=== PATIENT | female | born 1950 | race Caucasian/White ===

== ENCOUNTER 2019-09-26 13:53 | Emergency (ER) | payer MEDICARE, OTHER ==
[2019-09-26 14:11] VITALS: BP 146/94; PULSE 97; TEMP 98.2; BMI 29.7
[2019-09-26] MEDS ORDERED: KETOROLAC TROMETHAMINE 15 MG/ML VIAL IM ONE (14:13)
[2019-09-26] MEDS ORDERED: KETOROLAC TROMETHAMINE 15 MG/ML VIAL ONE (14:14)
--- NOTE | 2019-09-26 14:32 | PDOC ---
Documentation entered by Lore Bhatt SCRIBE, acting as scribe for Mu Manzanares MD. Mu Manzanares MD: This documentation has been prepared by the Susanna leal Maria, SCRIBE, under my direction and personally reviewed by me in its entirety. I confirm that the documentation accurately reflects all work, treatment, procedures, and medical decision making performed by me. History of Present Illness - General Chief Complaint: Headache Stated Complaint: HEADACHE Time Seen by Provider: 09/26/19 14:01 History Source: Patient Exam Limitations: No Limitations - History of Present Illness Initial Comments: 09/26/19 14:19 The patient is a 69 year old female with a significant past medical history of hypertension and GERD who presents to the emergency room with 9 days of a worsening headache. As per patient, she reports being prescribed Azithromycin for a sinus infection, she reports today is her second day on the medication. She also reports Advil for her symptoms with no alleviation of pain prompting her to the ER. Patient denies recent fevers, chills. She denies recent nausea or vomiting. She denies recent chest pain, weakness or shortness of breath. Past History - Past Medical History Allergies/Adverse Reactions: Allergies Allergy/AdvReac Type Severity Reaction Status Date / Time Penicillins Allergy Verified 09/26/19 14:01 Home Medications: Ambulatory Orders Azithromycin 250 mg PO DAILY 09/26/19 Esomeprazole Magnesium [Nexium 24Hr] 20 mg PO DAILY 09/26/19 Olmesartan Medoxomil [Benicar (Nf)] 20 mg PO DAILY 09/26/19 Review of Systems - Review of Systems Able to Perform ROS?: Yes Constitutional: No: Symptoms Reported, See HPI, Chills, Diaphoresis, Fever, Loss of Appetite, Malaise, Night Sweats, Weakness, Weight Stable, Unintentional Wgt. Loss, Unexplained wgt Loss, Other HEENTM: No: Symptoms Reported, See HPI, Eye Pain, Blurred Vision, Tearing, Recent change in vision, Double Vision, Cataracts, Ear Pain, Ocular Prothesis, Ear Discharge, Nose Pain, Nose Congestion, Tinnitus, Nose Bleeding, Hearing Loss, Throat Pain, Throat Swelling, Mouth Pain, Dental Problems, Difficulty Sw allowing, Mouth Swelling, Other Respiratory: No: Symptoms reported, See HPI, Cough, Orthopnea, Shortness of Breath, SOB with Exertion, SOB at Rest, Stridor, Wheezing, Productive cough, Hemoptysis, Other Cardiac (ROS): No: Symptoms Reported, See HPI, Chest Pain, Edema, Irregular Heart Rate, Lightheadedness, Palpitations, Syncope, Chest Tightness, Other ABD/GI: No: Symptoms Reported, See HPI, Abdominal Distended, Abd. Pain w/ defecation, Blood Streaked Bowels, Constipated, Diarrhea, Difficulty Swallowing, Nausea, Poor Appetite, Poor Fluid Intake, Rectal Bleeding, Vomiting, Indigestion, Abdominal cramping, Tarry Stools, Other : No: Symptoms Reported, See HPI, Burning, Dysuria, Discharge, Frequency, Flank Pain, Hematuria, Incontinence, Pain, Urgency, Testicular Mass, Testicular Swelling, Lesions, Testicular Pain, Other Musculoskeletal: No: Symptoms Reported, See HPI, Back Pain, Gout, Joint Pain, Joint Swelling, Muscle Pain, Muscle Weakness, Neck Pain, Joint Stiffness, Other Integumentary: No: Symptoms Reported, See HPI, Bruising, Change in Color, Change in Hair/Nails, Dryness, Erythema, Flushing, Lesions, Lumps, Pallor, Pruritus, Rash, Sweating, Other Neurological: Yes: Headache Psychiatric: No: Anxiety, Depression, Frequent Crying, Stressors, Sleep Pattern Change, Emotional Problems, Mood Swings, Change in Appetite, Other Endocrine: No: Symptoms Reported, See HPI, Excessive Sweating, Flushing, Intolerance to Cold, Intolerance to Heat, Increased Hunger, Increased Thirst, Increased Urine, Unexplained Weight Gain, Unexplained Weight Loss, Change in Weight, Other Hematologic/Lymphatic: No: Symptoms Reported, See HPI, Anemia, Blood Clots, Easy Bleeding, Easy Bruising, Bleeding Diathesis, Lymph Node Abnormalities, Swollen Glands, Other *Physical Exam - Vital Signs 09/26/19 14:20 GENERAL: Well developed, well nourished. Awake and alert. No acute distress. HEENT:+pressure in the frontal and maximal sinuses. Normocephalic, atraumatic. PERRLA, EOMI. No conjunctival pallor. Sclera are non- icteric. Moist mucous membranes. Oropharynx is clear. NECK: Supple. Full ROM. No JVD. Carotid pulses 2+ and symmetric, without bruits. No thyromegaly. No lymphadenopathy. CARDIOVASCULAR: Regular rate and rhythm. No murmurs, rubs, or gallops. Distal pulses are 2+ and symmetric. PULMONARY: No evidence of respiratory distress. Lungs clear to auscultation bilaterally. No wheezing, rales or rhonchi. ABDOMINAL: Soft. Non-tender. Non-distended. No rebound or guarding. No organomegaly. Normoactive bowel sounds. MUSCULOSKELETAL Normal range of motion at all joints. No bony deformities or tenderness. No CVA tenderness. EXTREMITIES: No cyanosis. No clubbing. No edema. No calf tenderness. SKIN: Warm and dry. Normal capillary refill. No rashes. No jaundice. NEUROLOGICAL: Alert, awake, appropriate. Cranial nerves 2-12 intact. No deficits to light touch and temperature in face, upper extremities and lower extremities. No motor deficits in the in face, upper extremities and lower extremities. Normoreflexic in the upper and lower extremities. Normal speech. Toes are down-going bilaterally. Gait is normal without ataxia. PSYCHIATRIC: Cooperative. Good eye contact. Appropriate mood and affect. ED Treatment Course - ADDITIONAL ORDERS Additional order review: 09/26/19 14:29 Patient with headache for 9 days, started on Z-pack yesterday for sinusitis Exam reveals no neurological deficits, strength 5+/5 b/l in UE and LE, no focal deficits no menigneal signs but sinus pressure in maxillary and frontal bilateral Pt given Toradol 15 mg IM and feeling better Advised to continue with Tylenol and Z-pack If worsen will need to return for CT head Pt is in agreement with plan. 09/26/19 14:31 Discharge - Discharge Information Problems reviewed: Yes Clinical Impression/Diagnosis: Sinus headache Condition: Improved Disposition: HOME - Admission No - Follow up/Referral - Patient Discharge Instructions Patient Printed Discharge Instructions: DI for Sinusitis Additional Instructions: Continue current treatment Fluids, rest Motrin If worsen return to ER for CT head - Post Discharge Activity
== END 2019-09-26 15:00 | disposition home or self-care (01) ==
LOC: FER 13:53
DX: R51 Headache (principal)
CPT/HCPCS: 99284-25

== ENCOUNTER 2025-01-07 16:52 | Emergency (ER) | payer OTHER ==
[2025-01-07 17:04] VITALS: BP 175/85; PULSE 70; RESP 18; TEMP 98.4; BMI 29.0
[2025-01-07] MEDS ORDERED: ACETAMINOPHEN 500 MG TABLET (FP) ONE (17:39)
[2025-01-07] MEDS ORDERED: KETOROLAC TROMETHAMINE 15 MG/ML VIAL ONE (17:39)
[2025-01-07] MEDS ORDERED: LIDOCAINE 5% TOPICAL PATCH ONE (17:40)
[2025-01-07] MEDS: LIDOCAINE 5% TOPICAL PATCH TP ONE (17:58)
[2025-01-07] MEDS: KETOROLAC TROMETHAMINE 15 MG/ML VIAL IM ONE (17:58)
[2025-01-07] MEDS: ACETAMINOPHEN 500 MG TABLET (FP) PO ONE (17:59)
[2025-01-07] MEDS ORDERED: LIDOCAINE PATCH REMOVAL MC SCH (22:00)
== END 2025-01-07 19:10 | disposition home or self-care (01) ==
LOC: FER 16:52
PROC: 3E0233Z Introduction of Anti-inflammatory into Muscle, Percutaneous Approach (ICD-10-PCS; principal; 2025-01-07)
DX: R10.9 Unspecified abdominal pain (principal); M54.50 Low back pain, unspecified
CPT/HCPCS: 72100-TC-FY; 81003; 87086; 96372; 99284-25